=== PATIENT | female | born 1990 | race Caucasian/White ===

== ENCOUNTER 2023-11-16 15:04 | Emergency (ER) | payer SELFPAY ==
[~2023-11-16 15:04] MED LIST: ACYCLOVIR400 MG PO; NO HOME MEDICATIONS; PREDNISONE20 MG PO; VENTOLIN0.09 MG IH; ZITHROMAX TRI-500 MG PO
[2023-11-16 15:17] VITALS: TEMP 97.8
[2023-11-16] MEDS ORDERED: CEPHALEXIN500 M1 PO (16:23)
[2023-11-16 16:36] VITALS: BP 130/50; PULSE 93
== END 2023-11-16 16:36 | disposition home or self-care (01) ==
LOC: COL.ER 15:04
DX: I88.9 Nonspecific lymphadenitis, unspecified (principal)